=== PATIENT | male | born 1950 | race Caucasian/White ===

== ENCOUNTER → 2017-12-18 | Outpatient (CLI) | payer OTHER | END | disposition home or self-care (01) | LOC: LABWHC1 11:54 | PROVIDERS: ATTEND Urology | DX: C61 Malignant neoplasm of prostate (principal) | CPT/HCPCS: 36415; 84153 ==

== ENCOUNTER → 2018-06-12 | Outpatient (CLI) | payer OTHER | END | disposition home or self-care (01) | LOC: LABWHC1 12:10 | PROVIDERS: ATTEND Urology | DX: N40.0 Benign prostatic hyperplasia without lower urinary tract symptoms (principal) | CPT/HCPCS: 36415; 84153 ==

== ENCOUNTER → 2018-12-18 | Outpatient (CLI) | payer MEDICARE, OTHER | END | disposition home or self-care (01) | LOC: LABWHC1 12:52 | PROVIDERS: ATTEND Urology | DX: C61 Malignant neoplasm of prostate (principal) | CPT/HCPCS: 36415; 84153 ==

== ENCOUNTER → 2021-03-12 | Outpatient (CLI) | payer MEDICARE ==
--- NOTE | 2021-03-12 10:59 | CT ---
EXAMINATION TYPE: CT abdomen pelvis wo/w con DATE OF EXAM: 03/12/2021 COMPARISON: 12/11/2015 HISTORY: 12/11/2015 CT DLP: 2507.50 mGycm Automated exposure control for dose reduction was used. CONTRAST: CT scan of the abdomen pelvis is performed , patient injected with 100 mL of Isovue 300. FINDINGS- LUNG BASES-calcified granuloma right lung. Calcified lymph nodes in the hilum.. LIVER/GB- No gross abnormality is appreciated. PANCREAS- No gross abnormality is seen. SPLEEN-splenic granuloma noted.. ADRENALS- No gross abnormality is seen. KIDNEYS/BLADDER- no hydronephrosis nephrolithiasis or renal mass. BOWEL- no bowel dilatation. Normal appendix. LYMPH NODES- No greater than 1cm abdominal or pelvic lymph nodes areappreciated. OSSEOUS STRUCTURES-hypertrophic and degenerative changes of the spine. Compression fracture T12 likel y chronic. Also noted is a previous CAT scan. There is a degree of retropulsion posteriorly encroache s upon the spinal canal and should be correlated clinically. Postsurgical changes at L1. Grade 1 ante rolisthesis L4 and L5 with multilevel severe facet arthropathy. OTHER- metallic seeds are seen in the pelvis and prostate. Aorta of normal caliber. No free fluid or free air. Incidental note made of a retroaortic left renal vein. IMPRESSION- 1. No diagnostic evidence of adenopathy. 2. Degenerative and chronic appearing compression fracture within the vertebral column. No diagnostic evidence of bony metastases by CAT scan. 3. Findings compatible with chronic granulomatous disease
--- NOTE | 2021-03-12 17:03 | NM ---
EXAMINATION TYPE: NM bone scan whole body DATE OF EXAM: 03/12/2021 COMPARISON: NONE HISTORY: Prostate cancer Delayed whole-body scanning was performed following the injection of 23.3 mCi Tc 99m MDP. Images acq uired 3 hours post injection. FINDINGS: No suspicious focal activity. There is bilateral degenerative change of the shoulders and knees. Activity of the spine at the level of T8 and T9 corresponds with significant degenerative disc disease on same day CT comparison. Activ ity at the left L4-L5 level corresponds with significant facet arthropathy seen on same day CT compar karrie. There is no activity at the level of the chronic appearing T12 compression deformity. IMPRESSION: No focal uptake suspicious for metastatic disease.
== END | disposition home or self-care (01) ==
LOC: RADCTMAIN 07:33
PROVIDERS: ATTEND Urology
DX: C61 Malignant neoplasm of prostate (principal)
CPT/HCPCS: 82565; 84520; 74178; 36415; 78306; A9503; Q9967

== ENCOUNTER → 2023-05-12 | Outpatient (CLI) | payer MEDICARE ==
--- NOTE | 2023-05-12 13:34 | BD ---
EXAMINATION TYPE: Axial Bone Density DATE OF EXAM: 05/12/2023 CLINICAL HISTORY: 72 years old Male. ICD-10 CODE: OSTEOPOROSIS M81.8 Height: 65.5 Weight: 209.9 FRAX RISK QUESTIONS: Alcohol (3 or more units per day): yes Family History (Parent hip fracture): no Glucocorticoids (More than 3mos): no History of Fracture in Adulthood: no Secondary Osteoporosis: 1. Type 1 Diabetes: no 2. Hyperthyroidism: no 3. Menopause before 45: na 4. Malnutrition: no 5. Chronic liver disease: no Rheumatoid Arthritis: no Current Tobacco Use: no RISK FACTORS HISTORY OF: Hip Fracture (Right/Left): no Spine Fracture: T-11 When: 30 years ago with fusion History of Wrist Fracture: no Surgery to Spine/Hip(right/left)/Wrist (right/left): no Family History of Osteoporosis: no Active: yes Diet low in dairy products/other sources of calcium: yes Postmenopausal woman: na If Premenopausal, do you have irregular periods: na Take estrogen and/or progesterone medications: no Lost more than 2 inches in height since high school: yes Frequent falls: no Poor Health: no Hyperparathyroidism: no Adrenal Insufficiency: no MEDICATIONS: Prednisone or other steroids: no Thyroid Medications: no Osteoporosis Medications:no Additional Medications: Hormone injection for prostate ca. past 2 years, Calcium, Reflux meds, Additional History: Prostate Ca. age 57 with radiation, Lymphoma age 62 with Chemo, Prostate reoccurr ence 2020 EXAM MEASUREMENTS: Bone mineral densitometry was performed using the [employer]. Bone mineral density as measured about the Lumbar spine is: ----- L1-L4(G/cm2): 1.302 T Score Values are as follows: ----- L1: 04 ----- L2: 2.2 ----- L3: 2.0 ----- L4: 0.1 ----- L1-L4: 1.0 Z Score Values are as follows: ----- L1: 0.1 ----- L2: 1.8 ----- L3: 1.7 ----- L4: 0.3 ----- L1-L4: 1.0 BASELINE STUDY Bone mineral density about the R hip (g/cm2): 1.001 Bone mineral density about the L hip (g/cm2): 1.006 T Score values are as follows: -----R Neck: -0.3 -----L Neck: -0.2 -----R Total: -0.1 -----L Total: 0.0 Z Score values are as follows: -----R Neck: 0.4 -----L Neck: 0.4 -----R Total: -0.3 -----L Total: -0.2 BASELINE STUDY FRAX%s: The graph provided illustrates a 5.8% chance for a major osteoporotic fx and a 1.1% chance fo r the hips probability for fx in 10 years time. IMPRESSION: Normal (Values between +1 and -1 indicate normal bone mass). Consider repeating this study in 5 year s or sooner if there is some new clinical indication. NOTE: T-SCORE=SD OF THE YOUNG ADULT MEAN.
== END | disposition home or self-care (01) ==
LOC: RADBDWWP 11:07
PROVIDERS: ATTEND Urology
DX: M81.8 Other osteoporosis without current pathological fracture (principal)
CPT/HCPCS: 77080

== ENCOUNTER → 2023-06-06 | Outpatient (CLI) | payer MEDICARE ==
[2023-06-07 01:58] LABS: HCT 38.8 % (39.6-50.0); HGB 12.5 d/dL (13.0-17.0); MCH 31.1 pg (27.0-32.0); MCHC 32.2 d/dL (32.0-37.0); MCV 96.5 FL (80.0-97.0); Mean Platelet Volume 10.2 FL (9.5-12.2); NRBC Per 100 WBC 0 X 10*3/uL (0.00-0.01); Platelet Count 355 X 10*3/uL (140-440); RBC 4.02 X 10*6/uL (4.40-5.60); RDW 14.7 % (11.5-14.5); WBC 7.48 X 10*3/uL (4.50-10.00)
[2023-06-07 02:31] LABS: Magnesium 1.9 mg/dL (1.5-2.4); Phosphorus 3.3 mg/dL (2.4-5.1)
[2023-06-07 03:54] LABS: ALT 24 U/L (10-49); AST 21 U/L (14-35); Albumin 4.5 d/dL (3.8-4.9); Albumin/Globulin Ratio 1.67 Ratio (1.60-3.17); Alkaline Phosphatase 76 U/L (41-126); BUN/Creat Ratio 18.46 Ratio (12.00-20.00); Bilirubin, Conjugated <0.20 mg/dL (0.20-0.40); Bilirubin,Unconjugated >0.10 mg/dL (0.20-1.00); Chloride 107 mmol/L (96-109); Globulin 2.7 d/dL (1.6-3.3); Glucose 92 mg/dL (70-110); Potassium 4.2 mmol/L (3.5-5.5); Prostate Specific Antigen <0.01 ng/mL (0.000-6.500); Sodium 142 mmol/L (135-145); Testosterone <10.00 ng/dL (86.98-780.10); Total Bilirubin 0.3 mg/dL (0.3-1.2); Total Protein 7.2 d/dL (6.2-8.2)
== END | disposition home or self-care (01) ==
LOC: LABWHC1 14:49
PROVIDERS: ATTEND Urology
DX: C61 Malignant neoplasm of prostate (principal)
CPT/HCPCS: 36415; 80048; 80076; 82306; 83735; 84100; 84153; 84403; 85027

== ENCOUNTER → 2023-12-25 | Outpatient (CLI) | payer MEDICARE ==
[2023-12-25 15:06] LABS: HCT 36.9 % (39.6-50.0); HGB 12.2 g/dL (13.0-17.0); MCHC 33.1 g/dL (32.0-37.0); MCV 93.9 FL (80.0-97.0); Mean Platelet Volume 9.3 FL (9.5-12.2); NRBC Per 100 WBC 0 X 10*3/uL (0.00-0.01); Platelet Count 348 X 10*3/uL (140-440); RBC 3.93 X 10*6/uL (4.40-5.60); WBC 5.52 X 10*3/uL (4.50-10.00)
[2023-12-25 15:24] LABS: Magnesium 1.8 mg/dL (1.5-2.4); Phosphorus 3.6 mg/dL (2.4-5.1)
[2023-12-25 15:48] LABS: ALT 23 U/L (10-49); AST 18 U/L (14-35); Albumin 4.6 g/dL (3.8-4.9); Alkaline Phosphatase 72 U/L (41-126); BUN/Creat Ratio 14.86 Ratio (12.00-20.00); Bilirubin, Conjugated <0.20 mg/dL (0.20-0.40); Bilirubin,Unconjugated >0.20 mg/dL (0.20-1.00); Blood Urea Nitrogen 20.8 mg/dL (9.0-27.0); Carbon Dioxide 21.4 mmol/L (21.6-31.8); Chloride 105 mmol/L (96-109); Globulin 2.7 g/dL (1.6-3.3); Glucose 81 mg/dL (70-110); Potassium 4.2 mmol/L (3.5-5.5); Prostate Specific Antigen <0.01 ng/mL (0.000-6.500); Sodium 141 mmol/L (135-145); Testosterone <10.00 ng/dL (86.98-780.10); Total Bilirubin 0.4 mg/dL (0.3-1.2); Total Protein 7.3 g/dL (6.2-8.2)
== END | disposition home or self-care (01) ==
LOC: LABWHC1 11:12
PROVIDERS: ATTEND Urology
DX: C61 Malignant neoplasm of prostate (principal)
CPT/HCPCS: 36415; 80048; 80076; 82306; 83735; 84100; 84153; 84403; 85027

== ENCOUNTER → 2024-05-15 | Outpatient (CLI) | payer MEDICARE ==
--- NOTE | 2024-05-15 21:29 | BD ---
EXAMINATION TYPE: Axial Bone Density MALE Patient DATE OF EXAM: 05/15/2024 CLINICAL HISTORY: 73 years old Male. ICD-10 CODE: C61 MALIGNANT NEOPLASM OF PROSTATE Height: 65.3 Weight: 211 FRAX RISK QUESTIONS: Alcohol (3 or more units per day): yes this q and a from 2022 study RISK FACTORS HISTORY OF: height loss, prostate ca age 47, lymphoma 62 yrs old, chemo and prostate reoccurance 2020, at 71 yrs old Spine Fracture: yes, T-12, 30+ yrs ago...with fusion MEDICATIONS: hormone injections for prostate ca past 3 yrs, recently stopped treatment, reflux meds, calcium, hx o f chemo and radiation, calcium, EXAM MEASUREMENTS: Bone mineral densitometry was performed using the [employer]. Bone mineral density as measured about the Lumbar spine is: ----- L1-L4(G/cm2): 1.370 T Score Values are as follows: ----- L1: 1.1 ----- L2: 2.9 ----- L3: 2.6 ----- L4: 0.7 ----- L1-L4: 1.6 Z Score Values are as follows: ----- L1: 0.8 ----- L2: 2.5 ----- L3: 2.2 ----- L4: 0.3 ----- L1-L4: 1.2 Bone mineral density has: Increased 5.2% since study of: 05.12.2023 Bone mineral density about the R hip (g/cm2): 1.004 Bone mineral density about the L hip (g/cm2): 1.077 T Score values are as follows: -----R Neck: -0.2 -----L Neck: 0.4 -----R Total: 0.0 -----L Total: 0.5 Z Score values are as follows: -----R Neck: 0.5 -----L Neck: 1.1 -----R Total: -0.2 -----L Total 0.3 Bone mineral density has: Increased 3.8% since study of: 05.12.2023 FRAX%s: The graph provided illustrates a 9.0% chance for a major osteoporotic fx and a 1.7% chance fo r the hips probability for fx in 10 years time. IMPRESSION: Normal (Values between +1 and -1 indicate normal bone mass). Consider repeating this study in 5 year s or sooner if there is some new clinical indication. NOTE: T-SCORE=SD OF THE YOUNG ADULT MEAN. [facility], , 05/15/2024 9:27 PM
== END | disposition home or self-care (01) ==
LOC: RADBDWWP 12:32
PROVIDERS: ATTEND Urology
DX: C61 Malignant neoplasm of prostate
CPT/HCPCS: 77080

== ENCOUNTER → 2024-11-27 | Outpatient (CLI) | payer MEDICARE ==
--- NOTE | 2024-11-27 16:50 | MR ---
EXAMINATION TYPE: MR cervical spine wo con DATE OF EXAM: 11/27/2024 3:32 PM COMPARISON: None. CLINICAL INDICATION: Male, 73 years old with history of M54.12 RADICULOPATHY, CERVICAL REGION, Neck p ain, tingling and numbness in left arm for 9 months. IV Contrast: cc (None if empty) TECHNIQUE: Multiplanar, multisequence images of the cervical spine were acquired without contrast. Findings: Craniovertebral junction relationships and prevertebral soft tissues are normal. The cervical vertebral segments are normal in height and alignment and there is no fracture or sublux ation. There is moderate degenerative disease at the C4-5, C5-6 and C6-7 levels where there is moderate disc space narrowing, loss of signal intensity and spondylosis. Posterior disc bulge and hypertrophic spu rring at the C4-5 and C5-6 levels results in mild mass effect on the ventral aspect of thecal sac. Th ere is no cervical disc herniation or cervical stenosis. The cervical cord is normal in size and signal intensity. Multilevel neural foraminal stenosis as follows; moderate to severe at C3-4 on the right, mild at C3- 4 on the left, severe at C4-5 bilaterally, and moderate at C5-6 bilaterally. IMPRESSION: 1. Moderate degenerative disc disease from C4 through C7. 2. No cervical disc herniation or cervical stenosis. 3. Normal cervical cord 4. Multilevel neural foraminal stenosis, moderate to severe as described above. [facility], Workstation: [id number], 11/27/2024 4:48 PM
== END | disposition home or self-care (01) ==
LOC: RADMRIMAIN 14:26
PROVIDERS: ATTEND Psychiatry & Neurology Neurology
DX: M48.02 Spinal stenosis, cervical region (principal); M50.123 Cervical disc disorder at C6-C7 level with radiculopathy
CPT/HCPCS: 72141